=== PATIENT | female | born 1960 | race Hispanic/Latino ===

== ENCOUNTER 2024-03-11 18:53 | Emergency (ER) | payer OTHER ==
[~2024-03-11] VITALS: Ht 165.1 cm; Wt 132.9 kg
[2024-03-11] MEDS: ACETAMINOPHEN WITH CODEINE 1 TAB TAB PO ONE (19:47)
[2024-03-11] MEDS ORDERED: ACET-2079 PO (20:18)
[2024-03-11 20:51] VITALS: BP 174/90; PULSE 69; RESP 16; O2SAT 98
== END 2024-03-11 20:51 | disposition home or self-care (01) ==
LOC: EDH 18:53
DX: S76.011A Strain of muscle, fascia and tendon of right hip, initial encounter (principal); M16.11 Unilateral primary osteoarthritis, right hip; Z98.890 Other specified postprocedural states; X58.XXXA Exposure to other specified factors, initial encounter; Y93.89 Activity, other specified; Y92.89 Other specified places as the place of occurrence of the external cause; Y99.8 Other external cause status
CPT/HCPCS: 72170; 73502